=== PATIENT | female | born 2005 | race Caucasian/White ===

== ENCOUNTER 2023-11-30 16:40 | Emergency (ER) | payer OTHER ==
[~2023-11-30] VITALS: Ht 160 cm; Wt 49.1 kg
[2023-11-30 16:48] VITALS: TEMP 98.5
[2023-11-30] MEDS ORDERED: Ondansetron 4 MG/2 ML VIAL IV ONE (17:15)
[2023-11-30] MEDS ORDERED: NS 1,000 ML IV ONE (17:15)
[2023-11-30] MEDS ORDERED: Ketorolac 30 MG/ML VIAL IV ONE (17:15)
[2023-11-30 17:50] LABS: BASO # 0.1 K/mm3 (0.0-0.2); BASO % 0.6 % (0.0-2.0); EOS # 0.1 K/mm3 (0.0-0.7); EOS % 0.8 % (0.0-4.0); GRAN # 6.8 K/mm3 (1.4-6.5); GRAN % 61.3 % (42.2-75.2); HEMATOCRIT 42.3 % (35.0-45.0); LYMPH # 3.3 K/mm3 (1.2-3.4); LYMPH % 29.4 % (20.0-51.0); MEAN CELL VOLUME 89 fl (80.0-95.0); MEAN CORPUSCULAR HEMOGLOBIN 29 pg (26-32); MEAN CORPUSCULAR HGB CONC 33 g/dl (33.0-37.0); MEAN PLATELET VOLUME 9.5 fl (7.4-10.4); MONO # 0.8 K/mm3 (0.1-0.6); MONO % 7.6 % (1.7-9.3); PLATELET COUNT 396 K/mm3 (130-400); RED BLOOD COUNT 4.76 M/mm3 (4.10-5.30)
[2023-11-30 18:07] LABS: ALBUMIN 3.9 g/dL (3.5-5.0); BILIRUBIN,TOTAL 0.3 mg/dL (0.2-1.2); C-REACTIVE PROTEIN 0.15 mg/dL (0.00-0.50); CALCIUM 9.8 mg/dL (8.4-10.2); CREATININE, serum 0.75 mg/dL (0.57-1.11); POTASSIUM 3.9 mEq/L (3.5-4.5); TOTAL PROTEIN 7.9 g/dl (6.2-8.1)
[2023-11-30] MEDS ORDERED: NS 100 ML IV SCH (18:35)
[2023-11-30] MEDS ORDERED: Iohexol 300 - 100 ML VIAL IV ONE (18:35)
[2023-11-30] MEDS ORDERED: MIRALAX510G PO (20:48)
[2023-11-30 21:01] VITALS: BP 97/73; PULSE 89
== END 2023-11-30 21:04 | disposition home or self-care (01) ==
LOC: COL.ER 16:40
PROVIDERS: Emergency Medicine
DX: K92.1 Melena (principal); K59.00 Constipation, unspecified; D72.829 Elevated white blood cell count, unspecified
CPT/HCPCS: J1885; J2405; J7030; Q9967